=== PATIENT | male | born 1990 | race Caucasian/White ===

== ENCOUNTER 2020-06-26 17:24 | Emergency (ER) | payer MEDICAID, OTHER ==
--- NOTE | 2020-06-26 17:27 | ERPHSYRPT ---
- History of Present Illness Time Seen by Provider: 06/26/20 17:27 Source: patient, family Exam Limitations: no limitations Physician History: This is a 30-year-old white male who has multiple complaints including feeling hot feeling cold, sweating, numbness to hands and feet, rapid heart rate, chest pain. Patient has been told he has a history of anxiety and panic attacks. He has been on Ativan in the past. He is not on any medications at this time. Patient is concerned that he might have something physical going on. He states he has aches and pains and various places of his body. He has had no measurable fevers at home. He has had no nausea no vomiting no diarrhea. He does not have abdominal pain. Patient has not been exposed to anybody who has been COVID-19 positive. Patient did use marijuana in the last couple of days. He denies other illicit drug use. Patient does drink up at least 3 alcoholic beverages a day, every day. Timing/Duration: yesterday Severity: mild Associated Symptoms: shortness of breath, chest pain Allergies/Adverse Reactions: No Known Drug Allergies Allergy (Verified 06/26/20 17:39) Home Medications: No Home Meds [No Home Meds] 1 ea MC UD 10/18/16 [History] Hx Tetanus, Diphtheria Vaccination/Date Given: Yes Hx Influenza Vaccination/Date Given: No Hx Pneumococcal Vaccination/Date Given: No Travel Risk - International Travel Have you traveled outside of the country in past 3 weeks: No - Coronavirus Screening Are you exhibiting any of the following symptoms?: No Close contact with a COVID-19 positive Pt in past 14-21 Days: No - Review of Systems Constitutional: No Symptoms Eyes: No Symptoms Ears, Nose, & Throat: No Symptoms Respiratory: No Symptoms Cardiac: Chest Pain Abdominal/Gastrointestinal: No Symptoms Genitourinary Symptoms: No Symptoms Musculoskeletal: No Symptoms Skin: No Symptoms Neurological: No Symptoms Psychological: Anxiety Endocrine: No Symptoms Hematologic/Lymphatic: No Symptoms Immunological/Allergic: No Symptoms All Other Systems: Reviewed and Negative - Past Medical History Pertinent Past Medical History: No Neurological History: No Pertinent History ENT History: No Pertinent History Cardiac History: No Pertinent History Respiratory History: No Pertinent History Endocrine Medical History: No Pertinent History Musculoskeletal History: No Pertinent History GI Medical History: No Pertinent History History: No Pertinent History Psycho-Social History: No Pertinent History Male Reproductive Disorders: No Pertinent History - Past Surgical History Past Surgical History: No Neuro Surgical History: No Pertinent History Cardiac: No Pertinent History Respiratory: No Pertinent History Gastrointestinal: No Pertinent History Genitourinary: No Pertinent History Musculoskeletal: No Pertinent History Male Surgical History: No Pertinent History - Social History Smoking Status: Never smoker Exposure to second hand smoke: Yes Drug Use: marijuana Patient Lives Alone: No - Nursing Vital Signs Nursing Vital Signs: Initial Vital Signs Temperature 98.4 F 06/26/20 17:30 Pulse Rate 118 H 06/26/20 17:30 Respiratory Rate 18 06/26/20 17:30 Blood Pressure 155/101 06/26/20 17:30 O2 Sat by Pulse Oximetry 95 06/26/20 17:30 Pain Scale Pain Intensity 2 - Physical Exam General Appearance: mild distress, alert, anxiety Eye Exam: PERRL/EOMI, eyes nml inspection Ears, Nose, Throat Exam: normal ENT inspection, moist mucous membranes Neck Exam: normal inspection, non-tender, supple, full range of motion Respiratory Exam: normal breath sounds, lungs clear, No chest tenderness, No respiratory distress Cardiovascular Exam: regular rate/rhythm, normal peripheral pulses, tachycardia Gastrointestinal/Abdomen Exam: soft, normal bowel sounds, No tenderness Rectal Exam: not done Back Exam: normal inspection, normal range of motion, No CVA tenderness, No vertebral tenderness Extremity Exam: normal inspection, normal range of motion, pelvis stable Neurologic Exam: alert, oriented x 3, cooperative, filter tank tender helper head II-XII nml as tested, normal mood/affect, nml cerebellar function, nml station & gait, sensation nml Skin Exam: normal color, warm, dry Lymphatic Exam: No adenopathy SpO2 Interpretation: normal O2 Delivery: Room Air - Course Nursing assessment & vital signs reviewed: Yes EKG Interpreted by Me: RATE (81), Sinus Rhythm, NORMAL AXIS, NORMAL INTERVALS, NORMAL QRS, NORMAL ST-T, Other (No comparison EKG) Ordered Tests: Active Orders 24 hr Category Date Time Status EKG-ER Only STAT Care 06/26/20 17:55 Active EKG-ER Only STAT Care 06/26/20 17:55 Active IV Insertion STAT Care 06/26/20 17:55 Active Pulse Oximetry (ED) STAT Care 06/26/20 17:55 Active BLOOD CULTURE Stat Lab 06/26/20 19:58 Ordered CBC W DIFF Stat Lab 06/26/20 18:14 Completed CMP Stat Lab 06/26/20 18:14 Completed TROPONIN Q3H Lab 06/26/20 18:14 Completed TROPONIN Q3H Lab 06/26/20 21:00 Ordered TROPONIN Q3H Lab 06/27/20 00:00 Ordered TROPONIN Q3H Lab 06/27/20 03:00 Ordered TROPONIN Q3H Lab 06/27/20 06:00 Ordered UA W/RFX UR CULTURE Stat Lab 06/26/20 18:15 Completed Urine Triage Profile Stat Lab 06/26/20 18:14 Completed Medication Summary Discontinued Medications Generic Name Dose Route Start Last Admin Trade Name Freq PRN Reason Stop Dose Admin Lorazepam 1 mg 06/26/20 18:00 06/26/20 18:08 Ativan 2 Mg/1 Ml Vial IV 06/26/20 18:01 1 mg STAT ONE Administration Lorazepam Confirm 06/26/20 18:06 Ativan 2 Mg/1 Ml Vial Administered 06/26/20 18:07 Dose 2 mg .ROUTE .STK-MED ONE Lab/Rad Data: Laboratory Result Diagrams 06/26/20 18:14 06/26/20 18:14 Laboratory Results 06/26/20 06/26/20 06/26/20 Range/Units 18:15 18:14 18:14 WBC (4.0-10.5) K/mm3 RBC (4.1-5.6) M/mm3 Hgb (12.5-18.0) gm/dl Hct (42-50) % MCV (78-100) fl MCH (26-32) pg MCHC (32-36) g/dl RDW (11.5-14.0) % Plt Count (150-450) K/mm3 MPV (7.5-11.0) fl Gran % (36.0-66.0) % Eos # (Auto) (0-0.5) Absolute Lymphs (auto) (1.0-4.6) Absolute Monos (auto) (0.0-1.3) Lymphocytes % (24.0-44.0) % Monocytes % (0.0-12.0) % Eosinophils % (0.00-5.0) % Basophils % (0.0-0.4) % Absolute Granulocytes (1.4-6.9) Basophils # (0-0.4) Sodium 137 (137-145) mmol/L Potassium 3.7 (3.5-5.1) mmol/L Chloride 102 (98-107) mmol/L Carbon Dioxide 25 (22-30) mmol/L Anion Gap 13.8 (5-15) MEQ/L BUN 11 (9-20) mg/dL Creatinine 0.78 (0.66-1.25) mg/dL Estimated GFR > 60.0 ML/MIN Glucose 111 H (74-106) mg/dL Calcium 10.5 H (8.4-10.2) mg/dL Total Bilirubin 0.50 (0.2-1.3) mg/dL AST 37 (17-59) U/L ALT 30 (0-50) U/L Alkaline Phosphatase 82 (38-126) U/L Troponin I < 0.012 (0.000-0.034) ng/mL Serum Total Protein 8.6 H (6.3-8.2) g/dL Albumin 5.0 (3.5-5.0) g/dL Urine Color STRAW (YELLOW) Urine Appearance CLEAR (CLEAR) Urine pH 5.0 (5-6) Ur Specific [place] 1.003 (1.005-1.025) Urine Protein NEGATIVE (Negative) Urine Ketones TRACE (NEGATIVE) Urine Blood MODERATE (0-5) Luis/ul Urine Nitrite NEGATIVE (NEGATIVE) Urine Bilirubin NEGATIVE (NEGATIVE) Urine Urobilinogen NEGATIVE (0-1) mg/dL Ur Leukocyte Esterase NEGATIVE (NEGATIVE) Urine WBC (Auto) NONE (0-5) /HPF Urine RBC (Auto) NONE (0-2) /HPF U Epithel Cells (Auto) NONE (FEW) /HPF Urine Bacteria (Auto) NONE (NEGATIVE) /HPF Urine Mucus (Auto) SLIGHT (NEGATIVE) /HPF Urine Culture Reflexed NO (NO) Urine Glucose NEGATIVE (NEGATIVE) mg/dL Urine Opiates Level (NEGATIVE) Ur Methadone (NEGATIVE) Urine Barbiturates (NEGATIVE) Ur Phencyclidine (PCP) (NEGATIVE) Urine Amphetamine (NEGATIVE) U Benzodiazepine Level (NEGATIVE) Urine Cocaine (NEGATIVE) Urine Marijuana (THC) (NEGATIVE) 06/26/20 06/26/20 Range/Units 18:14 18:14 WBC 15.1 H (4.0-10.5) K/mm3 RBC 4.86 (4.1-5.6) M/mm3 Hgb 15.0 (12.5-18.0) gm/dl Hct 46.1 (42-50) % MCV 94.9 (78-100) fl MCH 30.9 (26-32) pg MCHC 32.5 (32-36) g/dl RDW 13.1 (11.5-14.0) % Plt Count 251 (150-450) K/mm3 MPV 12.5 H (7.5-11.0) fl Gran % 82.5 H (36.0-66.0) % Eos # (Auto) 0.07 (0-0.5) Absolute Lymphs (auto) 1.79 (1.0-4.6) Absolute Monos (auto) 0.76 (0.0-1.3) Lymphocytes % 11.9 L (24.0-44.0) % Monocytes % 5.0 (0.0-12.0) % Eosinophils % 0.5 (0.00-5.0) % Basophils % 0.1 (0.0-0.4) % Absolute Granulocytes 12.47 H (1.4-6.9) Basophils # 0.01 (0-0.4) Sodium (137-145) mmol/L Potassium (3.5-5.1) mmol/L Chloride (98-107) mmol/L Carbon Dioxide (22-30) mmol/L Anion Gap (5-15) MEQ/L BUN (9-20) mg/dL Creatinine (0.66-1.25) mg/dL Estimated GFR ML/MIN Glucose (74-106) mg/dL Calcium (8.4-10.2) mg/dL Total Bilirubin (0.2-1.3) mg/dL AST (17-59) U/L ALT (0-50) U/L Alkaline Phosphatase (38-126) U/L Troponin I (0.000-0.034) ng/mL Serum Total Protein (6.3-8.2) g/dL Albumin (3.5-5.0) g/dL Urine Color (YELLOW) Urine Appearance (CLEAR) Urine pH (5-6) Ur Specific [place] (1.005-1.025) Urine Protein (Negative) Urine Ketones (NEGATIVE) Urine Blood (0-5) Luis/ul Urine Nitrite (NEGATIVE) Urine Bilirubin (NEGATIVE) Urine Urobilinogen (0-1) mg/dL Ur Leukocyte Esterase (NEGATIVE) Urine WBC (Auto) (0-5) /HPF Urine RBC (Auto) (0-2) /HPF U Epithel Cells (Auto) (FEW) /HPF Urine Bacteria (Auto) (NEGATIVE) /HPF Urine Mucus (Auto) (NEGATIVE) /HPF Urine Culture Reflexed (NO) Urine Glucose (NEGATIVE) mg/dL Urine Opiates Level NEGATIVE (NEGATIVE) Ur Methadone NEGATIVE (NEGATIVE) Urine Barbiturates NEGATIVE (NEGATIVE) Ur Phencyclidine (PCP) NEGATIVE (NEGATIVE) Urine Amphetamine NEGATIVE (NEGATIVE) U Benzodiazepine Level NEGATIVE (NEGATIVE) Urine Cocaine NEGATIVE (NEGATIVE) Urine Marijuana (THC) POSITIVE (NEGATIVE) - Progress Progress: improved, re-examined Counseled pt/family regarding: lab results, diagnosis, need for follow-up - Departure Departure Disposition: Home Clinical Impression: Leukocytosis, unspecified, Anxiety about health Condition: Stable Critical Care Time: No Referrals: DOCTOR,NO FAMILY [Primary Care Provider] - Additional Instructions: Drink plenty of fluids. Avoid illicit drug use. Use Tylenol and ibuprofen for pain and fever control. Take your medication as prescribed. Follow-up with y our primary care physician for further management Prescriptions: Smz/Tmp Ds Tablet [Bactrim Ds Tablet] 1 udtab PO BID #14 tablet
[2020-06-26] MEDS ORDERED: Ativan 2 MG/1 ML VIAL ONE (18:06)
[2020-06-26] MEDS: Ativan 2 MG/1 ML VIAL IV ONE (18:08)
[2020-06-26 18:26] LABS: Absolute Neutrophil Ct (ANC) 12.47 (1.4-6.9); BASOPHIL % 0.1 % (0.0-0.4); Basophil (Absolute #) 0.01 (0-0.4); Eosinophil % 0.5 % (0.00-5.0); Eosinophil (Absolute #) 0.07 (0-0.5); Hematocrit 46.1 % (42-50); Lymphocyte (Absolute #) 1.79 (1.0-4.6); Lymphocytes % 11.9 % (24.0-44.0); Mean Cell Volume 94.9 fl (78-100); Mean Corpuscular Hemoglobin 30.9 pg (26-32); Mean Corpuscular Hgb Concent. 32.5 g/dl (32-36); Mean Platelet Volume 12.5 fl (7.5-11.0); Monocyte (Absolute #) 0.76 (0.0-1.3); Neutrophil % 82.5 % (36.0-66.0); Platelet Count 251 K/mm3 (150-450); Red Blood Count 4.86 M/mm3 (4.1-5.6); Red Cell Distribution Width 13.1 % (11.5-14.0); White Blood Count 15.1 K/mm3 (4.0-10.5)
[2020-06-26 18:27] LABS: Appearance CLEAR (CLEAR); Bilirubin NEGATIVE (NEGATIVE); Blood MODERATE Ery/ul (0-5); Glucose NEGATIVE (NEGATIVE); Ketones TRACE (NEGATIVE); Leukocyte Esterase NEGATIVE (NEGATIVE); Mucus SLIGHT /HPF (NEGATIVE); Nitrite NEGATIVE (NEGATIVE); Protein,Urine Dip NEGATIVE (Negative); Specific Gravity 1.003 (1.005-1.025); Urobilinogen NEGATIVE mg/dL (0-1)
[2020-06-26 18:37] LABS: ALKALINE PHOSPHATASE 82 U/L (38-126); ANION GAP 13.8 MEQ/L (5-15); BLOOD UREA NITROGEN 11 mg/dL (9-20); CHLORIDE 102 mmol/L (98-107); Calcium 10.5 mg/dL (8.4-10.2); Carbon Dioxide 25 mmol/L (22-30); Creatinine 1 0.78 mg/dL (0.66-1.25); EST GLOMERULAR FILTRATION RATE > 60.0 ML/MIN; Glucose 111 mg/dL (74-106); Potassium 3.7 mmol/L (3.5-5.1); SGOT/AST 37 U/L (17-59); SGPT/ALT 30 U/L (0-50); SODIUM 137 mmol/L (137-145); Total Protein 8.6 g/dL (6.3-8.2)
[2020-06-26 18:41] LABS: Amphetamine,Urine NEGATIVE (NEGATIVE); Barbiturate,Urine NEGATIVE (NEGATIVE); Benzodiazepine,Urine NEGATIVE (NEGATIVE); Cocaine,Urine NEGATIVE (NEGATIVE); Methadone,Urine NEGATIVE (NEGATIVE); Opiate,Urine NEGATIVE (NEGATIVE); PCP,Urine NEGATIVE (NEGATIVE); THC,Urine POSITIVE (NEGATIVE)
[2020-06-26 19:16] VITALS: O2SAT 99
[2020-06-26 20:10] VITALS: BP 134/95; PULSE 77
[2020-06-26] MEDS ORDERED: BACTRIM DS TABLET PO ONE (20:11)
[2020-06-26] MEDS: BACTRIM DS TABLET PO STA (20:11)
[2020-06-26 22:28] LABS: Slide Review 1 YES
== END 2020-06-26 20:19 | disposition home or self-care (01) ==
LOC: ED 17:24
DX: D72.829 Elevated white blood cell count, unspecified (principal); F41.9 Anxiety disorder, unspecified
CPT/HCPCS: 36000; 36415; 80053; 80307; 81001; 84484; 85025; 93005; 94760; 96374; 99284; J2060; A9270-GY